=== PATIENT | male | born 1995 | race African-American/Black ===

== ENCOUNTER 2021-05-08 08:35 | Emergency (ER) | payer MEDICAID ==
[~2021-05-08] VITALS: Ht 177.8 cm; Wt 59.0 kg
[2021-05-08 08:40] VITALS: BP 120/70
[2021-05-08] MEDS ORDERED: IBUP-2030 MT ×2 (09:25)
[2021-05-08] MEDS ORDERED: AMOX-424 MT (09:25)
[2021-05-08] MEDS ORDERED: IBUPROFEN 800MG TABLET PO ONE (09:30)
[2021-05-08] MEDS ORDERED: IBUP100O28 MT (09:31)
== END 2021-05-08 09:49 | disposition home or self-care (01) ==
LOC: ER 08:35
DX: J01.90 Acute sinusitis, unspecified (principal)
CPT/HCPCS: 99282; 99283

== ENCOUNTER 2021-05-11 22:19 | Emergency (ER) | payer MEDICAID ==
[~2021-05-11] VITALS: Ht 177.8 cm; Wt 59.0 kg
[~2021-05-11 22:19] MED LIST: AMOX-424 MT; IBUP100O28 MT
[2021-05-12] MEDS: KETOROLAC 60MG/2ML VIAL IM STA (00:08)
[2021-05-12] MEDS ORDERED: NAPR500T7 PO (00:33)
[2021-05-12 00:49] VITALS: BP 128/78
== END 2021-05-12 00:56 | disposition home or self-care (01) ==
LOC: ER 22:19
DX: R51.9 Headache, unspecified (principal); K02.9 Dental caries, unspecified; J45.909 Unspecified asthma, uncomplicated
CPT/HCPCS: 96372; 99283; J1885